=== PATIENT | female | born 1965 | race Two or more races ===

== ENCOUNTER 2016-05-16 12:51 | Emergency (ER) | payer OTHER ==
[2016-05-16 13:05] VITALS: BP 129/82; PULSE 70; TEMP 97.3; BMI 30.9
[2016-05-16] MEDS ORDERED: OXYCODONE/APAP 5/325MG COMBO TABLET PO ONE (13:33)
[2016-05-16] MEDS ORDERED: OXYCODONE/APAP 5/325MG COMBO TABLET ONE (13:36)
--- NOTE | 2016-05-16 13:46 | PDOC ---
History of Present Illness - General Chief Complaint: Injury Stated Complaint: FALL/ LT ARM, ELBOW PAIN Time Seen by Provider: 05/16/16 13:14 - History of Present Illness Initial Comments: 05/16/16 13:36 CHIEF COMPLAINT: fall, elbow and head pain HISTORY OF PRESENT ILLNESS: 51 yo F with hx of kidney stones and gastritis presents to [facility] s/p fall down stairs x 2 hours ago. Patient states she was walking at home with her dog when the dog crossed in front of her and tripped her, causing her to tumble down the stairs. Patient landed on the back side of her hand No recent travel or sick contacts. PAST MEDICAL HISTORY: Denies past medical history FAMILY HISTORY: Denies SOCIAL HISTORY:Denies tobacco, alcohol, illicit drug use. SURGICAL HISTORY: "for kidney stones", tubal ligation ALLERGIES: No known drug allergies REVIEW OF SYSTEMS General/Constitutional: Denies fever or chills. Denies weakness, weight change. HEENT: Denies change in vision. Denies ear pain or discharge. Denies sore throat. Cardiovascular: Denies chest pain or shortness of breath. Respiratory: Denies cough, wheezing, or hemoptysis. Gastrointestinal: "A little nausea." Denies vomiting, diarrhea or constipation. Denies rectal bleeding. Genitourinary: Denies dysuria, frequency, or change in urination. Musculoskeletal: Denies joint or muscle swelling or pain. Denies neck or back pain. Skin and breasts: Denies rash or easy bruising. Neurologic: "A little dizziness." Denies loss of consciousness, or loss of sensation. PHYSICAL EXAM General Appearance: Well-appearing, appropriately dressed. No apparent distress. HEENT: Developing 2cm x 2 cm hematoma to left parietal/occipital scalp. No hemotympanum, Alva's sign, raccoon eyes. EOMI, PERRLA, normal ENT inspection, normal voice, TMs normal, pharynx normal. No conjunctival pallor. No photophobia, scleral icterus. Neck: Supple. Trachea midline. No tenderness, rigidity, carotid bruit, stridor , lymphadenopathy, or thyromegaly. Respiratory/Chest: Lungs CTAB. No shortness of breath, chest tenderness, respiratory distress, accessory muscle use. No crackles, rales, rhonchi, stridor , wheezing, dullness Cardiovascular: RRR. S1, S2. No JVD, murmur, bradycardia, tachycardia. Vascular Pulses: Dorsalis-Pedis (R): 2+, Dorsalis-Pedis (L): 2+ Gastrointestinal/Abdominal: Normal bowel sounds. Abdomen soft, non-distended. No tenderness or rebound tenderness. No organomegaly, pulsatile mass, guarding , hernia, hepatomegaly, splenomegaly. Lymphatic: No adenopathy, tenderness. Musculoskeletal/Extremities: Tenderness and swelling to distal aspect of left forearm. Limited ROM to right wrist secondary to pain. Left hand/fingers neurovascularly intact, pulses 2+. Normal inspection. FROM of all extremities, normal capillary refill. Pelvis Stable. No CVA tenderness. No tenderness to extremities, pedal edema, swelling, erythema or deformity. Integumentary: Appropriate color, dry, warm. No cyanosis, erythema, jaundice or rash Neurologic: assistant facility manager II-XII intact. Fully oriented, alert. Appropriate mood/affect. Motor strength 5/5. No appreciable EOM palsy, facial droop or sensory deficit. Past History - Past Medical History Allergies/Adverse Reactions: Allergies Allergy/AdvReac Type Severity Reaction Status Date / Time No Known Drug Allergies Allergy Verified 05/16/16 13:01 Home Medications: Ambulatory Orders Naproxen 250 mg PO BID #14 tablet 05/16/16 Oxycodone HCl/Acetaminophen [Percocet 5-325 mg Tablet] 1 - 2 tab PO Q6H #16 tab MDD 6 05/16/16 GI Disorders: Yes (GERD) - Psycho/Social/Smoking Cessation Hx Anxiety: No Suicidal Ideation: No Smoking History: Never smoked Have you smoked in the past 12 months: No Number of Cigarettes Smoked Daily: 0 Information on smoking cessation initiated: No Hx Alcohol Use: No Drug/Substance Use Hx: No Substance Use Type: None *Physical Exam - Vital Signs Last Vital Signs Temp Pulse Resp BP Pulse Ox 97.3 F L 70 18 129/82 100 05/16/16 13:02 05/16/16 13:02 05/16/16 13:02 05/16/16 13:02 05/16/16 13:02 ED Treatment Course - RADIOLOGY Radiology Studies Ordered: Category Date Time Status HEAD CT WITHOUT CONTRAST [CT] Stat CT Scan 05/16/16 13:35 Ordered FOREARM- LEFT [RAD] Stat Radiology 05/16/16 13:32 Ordered WRIST-LEFT [RAD] Stat Radiology 05/16/16 13:32 Ordered Medical Decision Making - Medical Decision Making 05/16/16 13:46 51 yo F with hx of kidney stones and gastritis presents to fast track s/p fall with pain to left forearm and left side of head. -L forearm/wrist x-ray -Head CT r/o bleed -Percocet for pain control X-ray results: Possible distal radial impaction fracture. Read by: Destin Goodman MD. Left arm splinted with reverse sugar tong orthoglass splint. -Percocet 1-2 tab q6h prn pain -Naproxen 250 mg bid Referrals for neuro/ortho provided Advised patient to take medications as prescribed and f/u with ortho and neurology next week. Advised patient of signs and symptoms for return to ER; patient and family verbalized understanding and agree to plan *DC/Admit/Observation/Transfer Diagnosis at time of Disposition: Radial fracture Qualifiers: Encounter type: initial encounter Radius location: distal Fracture type: closed Fracture morphology: unspecified fracture morphology Laterality: left Qualified Code(s): S52.502A - Unspecified fracture of the lower end of left radius, initial encounter for closed fracture - Discharge Dispostion Admit: No - Prescriptions Prescriptions: Naproxen 250 mg PO BID #14 tablet Oxycodone HCl/Acetaminophen [Percocet 5-325 mg Tablet] 1 - 2 tab PO Q6H #16 tab MDD 6 - Referrals Referrals: Jaquelin Reynolds [Primary Care Provider] - Robbin Thornton MD [Staff Physician] - - Patient Instructions Printed Discharge Instructions: How to Use a Sling, Forearm Fracture, DI for Closed Head Injury Additional Instructions: Please take medication as prescribed and follow up with orthopedics and neurology next week. If you experience any change in vision; weakness to one side; difficulty speaking, swallowing, or walking; tingling; loss of feeling to your arm, wrist, or fingers; multiple episodes of vomiting, or any new or worsening symptoms, please return to the ER. Print Language: INDONESIAN
== END 2016-05-16 15:05 | disposition home or self-care (01) ==
LOC: JERFT 12:51
PROC: 2W3CX1Z Immobilization of Right Lower Arm using Splint (ICD-10-PCS; principal; 2016-05-16)
DX: S00.03XA Contusion of scalp, initial encounter (principal); S52.591A Other fractures of lower end of right radius, initial encounter for closed fracture; W10.8XXA Fall (on) (from) other stairs and steps, initial encounter; Y93.K1 Activity, walking an animal; Y92.038 Other place in apartment as the place of occurrence of the external cause
CPT/HCPCS: 29125; 70450-TC; 73090-TC-LT; 73110-TC-LT; 99282-25

== ENCOUNTER 2022-08-16 16:49 | Emergency (ER) | payer OTHER ==
[2022-08-16 17:02] VITALS: RESP 18
[2022-08-16 17:16] VITALS: BMI 30.9
[2022-08-16] MEDS ORDERED: SODIUM CHLORIDE 0.9% 500 ML INFUS.BAG IV ONE (17:36)
[2022-08-16] MEDS ORDERED: METOCLOPRAMIDE HCL INJECTION 10 MG/2 ML VIAL IVPUSH ONE (17:36)
[2022-08-16] MEDS ORDERED: METOCLOPRAMIDE HCL INJECTION 10 MG/2 ML VIAL ONE (17:54)
[2022-08-16 18:15] LABS: BASO % 0.4 % (0-2.0); EOS % 0.3 % (0-4.5); HEMATOCRIT 42.1 % (32.4-45.2); HEMOGLOBIN 14.2 GM/dL (10.7-15.3); LYMPH % 41.3 % (8-40); MCH 30.1 pg (25.7-33.7); MCHC 33.8 g/dl (32.0-36.0); MEAN PLT VOLUME 8.8 fl (7.5-11.1); MONO % 6.2 % (3.8-10.2); NEUT % 51.8 % (42.8-82.8); PLATELET COUNT 308 10^3/uL (134-434); RBC 4.73 M/mm3 (3.60-5.2); RDW 13.2 % (11.6-15.6); WHITE BLOOD COUNT 8.2 K/mm3 (4.0-10.0)
[2022-08-16 18:19] LABS: EPI CELLS 26 /uL (0-25.1); HYALINE CASTS 3 /uL (0-3.1); PH,URINE 8.5 (5.0-8.0); URINE APPEARANCE CLEAR; URINE BACTERIA 15 /uL (0-1359); URINE BILIRUBIN NEGATIVE (NEGATIVE); URINE COLOR YELLOW; URINE GLUCOSE (UA) NEGATIVE (NEGATIVE); URINE KETONE TRACE (NEGATIVE); URINE LEUK ESTERASE TRACE (NEGATIVE); URINE NITRITE NEGATIVE (NEGATIVE); URINE PROTEIN NEGATIVE (NEGATIVE); URINE WBC 22 /uL (0-25.8)
[2022-08-16 18:22] LABS: INR 1.13 (0.83-1.09); PROTHROMBIN TIME (PATIENT) 13.1 SEC (9.7-13.0)
[2022-08-16 18:25] LABS: ACTIVATED PTT 32.1 SECONDS (25.2-36.5)
[2022-08-16 18:36] LABS: POTASSIUM 3.9 mmol/L (3.5-5.1)
[2022-08-16 18:38] LABS: ALBUMIN 4.2 g/dl (3.4-5.0); BLOOD UREA NITROGEN 11.6 mg/dL (7-18); CALCIUM 9.7 mg/dL (8.5-10.1); MAGNESIUM 2.3 mg/dL (1.8-2.4)
[2022-08-16 18:42] LABS: BILIRUBIN,TOTAL 0.6 mg/dL (0.2-1); TOT PROT 8.7 g/dl (6.4-8.2)
[2022-08-16 18:43] LABS: URINE RBC 56 /uL (0-23.9)
[2022-08-16 19:04] VITALS: BP 138/71; PULSE 64; TEMP 97.5
[2022-08-16] MEDS ORDERED: ACETAMINOPHEN 1000 MG/100 ML BAG IVPB ONE (19:18)
[2022-08-16] MEDS ORDERED: ACETAMINOPHEN INJECTION 100 ML IVPB ONE (19:37)
[2022-08-16] MEDS ORDERED: valACYclovir HCL 500 MG TABLET (FP) PO ONE (19:52)
[2022-08-16] MEDS ORDERED: predniSONE 20 MG TABLET (UD) PO ONE (19:53)
[2022-08-16] MEDS ORDERED: predniSONE 20 MG TABLET (UD) ONE (20:24)
[2022-08-16] MEDS ORDERED: valACYclovir HCL 500 MG TABLET (FP) ONE (20:24)
[2022-08-16] MEDS ORDERED: KETOROLAC TROMETHAMINE 15 MG/ML VIAL IVPUSH ONE (20:27)
[2022-08-16] MEDS ORDERED: LORazepam 2 MG TABLET PO ONE (20:28)
[2022-08-16] MEDS ORDERED: PANTOPRAZOLE SODIUM 40 MG VIAL IVPUSH ONE (20:28)
[2022-08-16] MEDS ORDERED: PANTOPRAZOLE SODIUM 40 MG VIAL ONE (20:31)
[2022-08-16] MEDS ORDERED: KETOROLAC TROMETHAMINE 15 MG/ML VIAL ONE (20:31)
== END 2022-08-16 21:52 | disposition short-term general hospital (02) ==
LOC: JER 16:49
PROC: 3E033NZ Introduction of Analgesics, Hypnotics, Sedatives into Peripheral Vein, Percutaneous Approach (ICD-10-PCS; principal; 2022-08-16)
PROC: 3E033GC Introduction of Other Therapeutic Substance into Peripheral Vein, Percutaneous Approach (ICD-10-PCS; 2022-08-16)
PROC: 3E033GC Introduction of Other Therapeutic Substance into Peripheral Vein, Percutaneous Approach (ICD-10-PCS; 2022-08-16)
DX: R10.13 Epigastric pain (principal); R51.9 Headache, unspecified; R42 Dizziness and giddiness; R11.0 Nausea; B02.21 Postherpetic geniculate ganglionitis; Z20.822 Contact with and (suspected) exposure to COVID-19
CPT/HCPCS: 0241U-QW; 36415; 70450-TC; 80053; 81003; 83605; 83690; 83735; 84439; 84443; 84484; 85025; 85610; 85730; 86850; 86900; 86901; 87086; 93005; 93010; 99285-25